=== PATIENT | male | born 1975 | race Caucasian/White ===

== ENCOUNTER 2019-10-12 15:53 | Emergency (ER) | payer OTHER, SELFPAY ==
[2019-10-12 16:00] VITALS: BP 129/69; PULSE 83; RESP 14; TEMP 36.8; O2SAT 97; BMI 18.2
--- NOTE | 2019-10-12 16:15 | PC.NURSE ---
walked into sharp object, approximately at 345pm today, denies loc, denies neck pain, with minimal pain at this time, site irrigated with ns, and tolerated well. tetanus 2014
--- NOTE | 2019-10-12 16:52 | ED.WOUNDLAC ---
HPI - Wound/Laceration <LETICIA Srivastava - Last Filed: 10/12/19 17:25> General Chief Complaint: Wound/Laceration Stated Complaint: LACERATION OF LEFT SIDE OF HEAD Time Seen by Provider: 10/12/19 16:15 Source: patient Mode of arrival: Ambulatory Limitations: no limitations History of Present Illness HPI narrative: The patient is a 43-year-old male pre nonsmoker with history of elevated bilirubin who presents with a chief complaint of a laceration to his head. He states that he hit it on a piece of metal while at work. No loss of consciousness, no lightheadedness dizziness nausea vomiting neck or back pain. States his last tetanus was in 2013. He presents with a chief complaint of laceration to his head. Related Data Home Medications Medication Instructions Recorded Confirmed Fish Oil 1,000 mg PO QDAY #0 01/28/13 VITAMIN D (Vitamin D3) 1,000 unit PO QDAY #0 01/28/13 magnesium oxide 250 mg PO #0 12/30/15 dextroamphetamine-amphetamine #0 08/22/16 [Adderall] Previous Rx's Medication Instructions Recorded ondansetron [Zofran ODT] 8 mg SUBLINGUAL Q6HP PRN #8 odt 12/30/15 Allergies Allergy/AdvReac Type Severity Reaction Status Date / Time malignant hypothermia Allergy Uncoded 10/12/19 16:00 Review of Systems <LETICIA Srivastava - Last Filed: 10/12/19 17:25> Review of Systems Narrative: GENERAL: Denies chills, fatigue, malaise, fever, sweats. HEENT: Denies sinus pain, ear pain, sore throat, difficulty swallowing, dizziness. RESPIRATORY: Denies dyspnea, cough, wheezing, hemoptysis, sputum. CARDIOVASCULAR: Denies chest pain, palpitations, orthopnea, edema, GASTROINTESTINAL: Denies nausea, vomiting, abdominal pain, diarrhea, constipation, melena. : Denies dysuria, frequency, incontinence, hematuria, urinary retention. MUSCULOSKELETAL: denies weakness, joint pain, or bony pain SKIN: See HPI NEUROLOGIC: Denies weakness, headache, numbness, change in speech, confusion, seizures, incoordination. PSYCHIATRIC: No concerning psychosocial issues. 12 point review of systems is negative except for those stated above Patient History <LETICIA Srivastava - Last Filed: 10/12/19 17:25> Social History Smoking Status: Unknown if ever smoked Smoking Status: Unknown if ever smoked alcohol intake frequency: holidays/special occasions only Substance Use Type: does not use Exam <ROMELIA Srivastava - Last Filed: 10/12/19 17:25> Narrative Exam Narrative: GENERAL: This is a well-nourished, well-developed patient, in no acute distress HEAD: Atraumatic. Normocephalic. No temporal or scalp tenderness. EYES: Pupils equal round and reactive. Extraocular motions intact. No scleral icterus. No injection or drainage. ENT: Nose without bleeding, purulent drainage or septal hematoma. Throat without erythema, tonsillar hypertrophy or exudate. Uvula midline. Airway patent. NECK: Trachea midline. No JVD or lymphadenopathy. Supple, nontender, no meningeal signs. CARDIOVASCULAR: Regular rate and rhythm RESPIRATORY: No cough. No increased respiratory effort. No accessory muscle use. GASTROINTESTINAL: Abdomen soft, non-tender, nondistended. No hepato-splenomegaly, or palpable masses. No guarding. EXTREMITIES: No clubbing, cyanosis, or edema. No joint tenderness, effusion, or edema noted. BACK: Nontender without deformity or crepitance. No flank tenderness. No pain to CT or L-spine palpation. NEURO: AOx3. Using all extremities equally. Stable gait. SKIN: 2 cm linear laceration on left side of scalp and hair Initial Vital Signs Initial Vital Signs: Vital Signs Temperature 98.2 F 10/12/19 16:00 Pulse Rate 83 10/12/19 16:00 Respiratory Rate 14 10/12/19 16:00 Blood Pressure 129/69 10/12/19 16:00 Pulse Oximetry 97 10/12/19 16:00 <Bubba Mejía MD - Last Filed: 10/12/19 18:31> Initial Vital Signs Initial Vital Signs: Vital Signs Temperature 98.2 F 10/12/19 16:00 Pulse Rate 83 10/12/19 16:00 Respiratory Rate 14 10/12/19 16:00 Blood Pressure 129/69 10/12/19 16:00 Pulse Oximetry 97 10/12/19 16:00 Procedures <ROMELIA Srivastava - Last Filed: 10/12/19 17:25> Laceration Repair Laceration 1: Site: scalp Side (If applicable): left Size (cm): 2 Description: linear Depth: simple, single layer Pre-repair: wound explored (Hibiclens and flushed by nursing), irrigated extensively and deep structures intact Skin layer closed with: ascencion (x 5) Course <ROMELIA Srivastava - Last Filed: 10/12/19 17:25> Orders Ordered: Discontinued Medications Diphtheria/Tetanus/Acell Pertussis (Adacel) 0.5 ml IM .ONCE ONE Stop: 10/12/19 16:25 Last Admin: 10/12/19 16:29 Dose: Not Given Documented by: KBROTEM Diphtheria/Tetanus/Acell Pertussis (Adacel) 0.5 ml IM .ONCE ONE Stop: 10/12/19 16:52 Last Admin: 10/12/19 16:53 Dose: 0.5 ml Documented by: MEISENHiral Vital Signs Vital signs: Vital Signs - 8 hr 10/12/19 16:00 Temperature 98.2 F Pulse Rate 83 Respiratory Rate 14 Blood Pressure 129/69 Pulse Oximetry 97 <Bubba Mejía MD - Last Filed: 10/12/19 18:31> Orders Ordered: Discontinued Medications Diphtheria/Tetanus/Acell Pertussis (Adacel) 0.5 ml IM .ONCE ONE Stop: 10/12/19 16:25 Last Admin: 10/12/19 16:29 Dose: Not Given Documented by: KBROTEM Diphtheria/Tetanus/Acell Pertussis (Adacel) 0.5 ml IM .ONCE ONE Stop: 10/12/19 16:52 Last Admin: 10/12/19 16:53 Dose: 0.5 ml Documented by: MEISENHiral Vital Signs Vital signs: Vital Signs - 8 hr 10/12/19 16:00 Temperature 98.2 F Pulse Rate 83 Respiratory Rate 14 Blood Pressure 129/69 Pulse Oximetry 97 MDM - Wound/Laceration <ROMELIA Srivastava - Last Filed: 10/12/19 17:25> MDM Narrative Medical decision making narrative: The patient is a 43-year-old male presents with a chief complaint of laceration. He denies any headache, nausea vomiting, lightheadedness or dizziness, loss of consciousness or signs of head injury. Wound was closed by ascencion as per procedural note. His tetanus is updated as his tetanus is over 5 years old. Encouraged follow-up with primary care provider. Discussed monitoring for any acute concerns such as signs of infection and coming back to the emergency department for any acute concerns. Discussed not submerging head into dirty water. Patient has no questions or concerns upon discharge and states understanding of return precautions as well as follow-up care. Discharge Plan Departure Patient Disposition: Home Clinical Impression: Laceration Discharge Date/Time: 10/12/19 17:06 Instructions: How to Care for a Laceration After Repair, DI for Laceration Repair -- Ascencion, DI for Minor Laceration Activity Restrictions/Additional Instructions: Thank you for trusting us with your care today We placed 5 ascencion in your scalp. Please follow up for staple removal in about 10-14 days Please monitor for signs and symptoms of infection such as redness swelling and pus Please follow-up if those occur Please come back to the emergency department for any acute concerns Prescriptions: No Action Fish Oil 1,000 mg PO QDAY Qty: 0 RF: 0 VITAMIN D (Vitamin D3) 1,000 unit PO QDAY Qty: 0 RF: 0 magnesium oxide 250 MG tablet 250 mg PO Qty: 0 RF: 0 ondansetron [Zofran ODT] 8 MG tablet,disintegrating 8 mg Sublingual Q6HP PRNQty: 8 RF: 0 dextroamphetamine-amphetamine [Adderall] 5 MG tablet Qty: 0 RF: 0 Referrals: Anshu Hui MD [Primary Care Provider] - Yessy Johnson MD [Physician] - Stand Alone Forms: Work Release Note <Bubba Mejía MD - Last Filed: 10/12/19 18:31> Cosign ED Attending Cosignature Attestation: I was immediately available in the department for consultation. This documentation has been reviewed and I agree with assessment and plan. Supervised by Bubba Mejía MD
[2019-10-12] MEDS: TET,DIPH,PERTUSS(ACELL),VAC/PF 0.5 ML SYRINGE IM (16:53)
== END 2019-10-12 17:06 | disposition home or self-care (01) ==
PROVIDERS: Emergency Provider Nurse Practitioner Family; PCP Family Medicine
DX: S01.01XA Laceration without foreign body of scalp, initial encounter (principal); W22.8XXA Striking against or struck by other objects, initial encounter; Z23 Encounter for immunization; Y99.0 Civilian activity done for income or pay
CPT/HCPCS: 12001; 90471; 99283; 90715

== ENCOUNTER → 2021-01-29 17:04 | Outpatient (CLI) | payer OTHER, SELFPAY ==
--- NOTE | 2021-01-29 17:10 | DI.RAD.S_ITS ---
PROCEDURE: XR RIBS RT MIN 3V W CXR 1V INDICATIONS: R mid anterior rib pain post injury, r/o fracture TECHNIQUE: 2 views of the right ribs were acquired, along with a single view chest. COMPARISON: None. FINDINGS: Surgical changes and devices: None. Bones and chest wall: A marker is placed upon the area of clinical concern. Within this region, no displaced rib fracture or other significant rib abnormality can be seen. No rib fractures are seen elsewhere. No suspicious bony lesions. Overlying soft tissues appear unremarkable. Lungs and pleura: No pleural effusions or pneumothorax. Lungs appear clear. Mediastinum: Mediastinal contours appear normal. Heart size is normal. IMPRESSION: No displaced rib fracture can be seen. No pneumothorax. Dictated by: Abdifatah Briscoe M.D. on 01/29/2021 at 16:54 Approved by: Abdifatah Briscoe M.D. on 01/29/2021 at 16:54
== END ==
PROVIDERS: Referring Provider Nurse Practitioner; Visit Provider Nurse Practitioner
DX: R07.81 Pleurodynia (principal)
CPT/HCPCS: 71101

== ENCOUNTER → 2021-04-15 09:14 | Outpatient (CLI) | payer OTHER, MEDICAID, SELFPAY ==
[2021-04-15 10:52] LABS: COVID19 -Nasal RAPID Negative (Negative)
== END ==
PROVIDERS: Visit Provider Physician Assistant
DX: Z20.822 Contact with and (suspected) exposure to COVID-19 (principal); J02.9 Acute pharyngitis, unspecified; R05.9 Cough, unspecified
CPT/HCPCS: 87635

== ENCOUNTER → 2021-08-08 08:47 | Outpatient (CLI) | payer OTHER, MEDICAID, SELFPAY | PROVIDERS: PCP Student in an Organized Health Care Education/Training Program; Referring Provider Student in an Organized Health Care Education/Training Program; Visit Provider Family Medicine | DX: I87.2 Venous insufficiency (chronic) (peripheral) (principal); I83.91 Asymptomatic varicose veins of right lower extremity; D68.1 Hereditary factor XI deficiency; Q87.40 Marfan syndrome, unspecified | CPT/HCPCS: 99203; 99213 ==

== ENCOUNTER → 2022-03-12 13:37 | Outpatient (CLI) | payer OTHER, SELFPAY | PROVIDERS: PCP Student in an Organized Health Care Education/Training Program; Visit Provider Student in an Organized Health Care Education/Training Program | DX: J02.9 Acute pharyngitis, unspecified (principal) | CPT/HCPCS: 87070 ==

== ENCOUNTER → 2023-02-17 17:10 | Outpatient (CLI) | payer OTHER, SELFPAY ==
--- NOTE | 2023-02-17 17:11 | DI.MRI.S_ITS ---
PROCEDURE: MR SHOULDER RT WO CON INDICATIONS: Pain in right shoulder TECHNIQUE: Noncontrast oblique coronal T2 fast spin echo with fat saturation, oblique sagittal T1 spin echo and T2 fast spin echo with fat saturation, axial T1 spin echo and T2 fast spin echo with fat saturation through the shoulder. COMPARISON: None. FINDINGS: Image quality: Excellent. Rotator cuff: Moderate supraspinatus and infraspinatus tendinosis is seen without significant tearing. The teres minor and subscapularis tendons appear to be intact. There is no significant rotator cuff muscle atrophy. Bones and bursae: No acute trabecular bone injury or fracture. Chronic traction cystic changes are seen at the posterosuperior humeral head and the lesser tuberosity near the rotator cuff tendon insertions. No large full-thickness cartilage defect is seen in the glenohumeral joint. Moderate degenerative changes are seen at the acromioclavicular joint with subchondral edema, subchondral cystic changes, and small marginal osteophytes. There is a small amount of fluid in the subacromial/subdeltoid bursa. No significant glenohumeral effusion is seen. Capsule and soft tissues: There is nondisplaced tearing of the posterosuperior to posteroinferior labrum. The proximal biceps long head tendon demonstrates mild tendinosis and flattening without a definite tear. There is mild partial effacement of the fat in the rotator interval. The anterior band of the inferior glenohumeral ligament and the middle glenohumeral ligament appear thickened. IMPRESSION: 1. Nondisplaced tearing of the posterosuperior to posteroinferior labrum. 2. Mild proximal biceps long head tendinosis. 3. Moderate supraspinatus and infraspinatus tendinosis. No significant rotator cuff tendon tear is seen. 4. Moderate acromioclavicular joint osteoarthrosis. 5. Small subacromial/subdeltoid bursal effusion or mild bursitis. 6. Partial effacement of the rotator interval fat and mild thickening of the inferior and middle glenohumeral ligaments are nonspecific, but can be seen in the setting of the clinical syndrome of adhesive capsulitis. Approved by: Servando Vo M.D. on 02/18/2023 at 9:22
== END ==
PROVIDERS: PCP Student in an Organized Health Care Education/Training Program; Referring Provider Family Medicine; Visit Provider Family Medicine
DX: S43.491A Other sprain of right shoulder joint, initial encounter (principal); M19.011 Primary osteoarthritis, right shoulder; M25.511 Pain in right shoulder; G89.29 Other chronic pain
CPT/HCPCS: 73221

== ENCOUNTER → 2023-05-13 14:26 | Outpatient (CLI) | payer OTHER, SELFPAY ==
--- NOTE | 2023-05-13 14:30 | DI.RAD.S_ITS ---
PROCEDURE: XR LUMBAR SPINE 2-3V INDICATIONS: LUMBAR DISC TECHNIQUE: 3 views of the lumbar spine were acquired. COMPARISON: None. FINDINGS: Bones: 5 [id number] vertebrae are present. There is normal bony alignment. No vertebral body compression fractures. No suspicious bony lesions. Mild L3-L4, L4-L5 and L5-S1 degenerative disc disease. Soft tissues: Overlying bowel gas pattern is normal. No suspicious soft tissue calcifications. IMPRESSION: Mild multilevel degenerative disc disease. Dictated by: Shahla Oswald MD, PhD on 05/13/2023 at 15:09 Approved by: Shahla Oswald MD, PhD on 05/13/2023 at 15:11
== END ==
PROVIDERS: PCP Student in an Organized Health Care Education/Training Program; Referring Provider Chiropractor; Visit Provider Chiropractor
DX: M51.26 Other intervertebral disc displacement, lumbar region (principal); M51.36 Other intervertebral disc degeneration, lumbar region; M51.37 Other intervertebral disc degeneration, lumbosacral region
CPT/HCPCS: 72100

== ENCOUNTER → 2023-06-16 16:15 | Outpatient (CLI) | payer OTHER, SELFPAY ==
--- NOTE | 2023-06-16 | DI.MRI.S_ITS ---
PROCEDURE: MR LUMBAR SPINE WO CON INDICATIONS: Sprain of ligaments of lumbar spine TECHNIQUE: Noncontrast sagittal T1 spin echo and T2 fast echo, sagittal STIR, and T2 fast spin echo through the lumbar spine. In cases with scoliosis, additional coronal T2 fast spin echo may be performed. COMPARISON: [facility], CR, XR LUMBAR SPINE 2-3V, 05/13/2023, 14:42. FINDINGS: Image quality: Excellent. Alignment and Curvature: There is normal bony alignment. Bone Marrow: Marrow is of normal overall signal. Mild moderate eactive endplate changes L2-3, including Schmorl's node along the superior endplate of L3. No acute vertebral body compression fractures. Spinal Cord: Conus medullaris terminates at the L1 level. Visualized cord demonstrates normal signal and size. Paraspinous Soft Tissues: No paravertebral masses. Discs: Multilevel disc desiccation most severe at L3-4, L4-5. T12-L1: No disc bulge, spinal stenosis or foraminal narrowing. L1-L2: No disc bulge, spinal stenosis or foraminal narrowing. L2-L3: Minimal disc bulge without spinal stenosis. Minimal left foraminal narrowing. Facet and ligamentum flavum hypertrophy are present. L3-L4: Minimal disc bulge without spinal stenosis. Minimal left foraminal narrowing with facet and ligamentum flavum hypertrophy. L4-L5: Minimal disc bulge without spinal stenosis or foraminal narrowing. Minimal facet and ligamentum flavum hypertrophy. L5-S1: No disc bulge, spinal stenosis or foraminal narrowing. IMPRESSION: Early degenerative changes demonstrating minimal areas of foraminal narrowing secondary to early facet arthropathy. Dictated by: Valentine Coe M.D. on 06/17/2023 at 9:06 Approved by: Valentine Coe M.D. on 06/17/2023 at 9:08
== END ==
PROVIDERS: PCP Family Medicine; Referring Provider Family Medicine; Visit Provider Family Medicine
DX: S32.049A Unspecified fracture of fourth lumbar vertebra, initial encounter for closed fracture (principal); S39.012A Strain of muscle, fascia and tendon of lower back, initial encounter; X58.XXXA Exposure to other specified factors, initial encounter; S33.5XXA Sprain of ligaments of lumbar spine, initial encounter
CPT/HCPCS: 72148

== ENCOUNTER → 2024-01-19 16:11 | Outpatient (ROUT) | payer BC, SELFPAY ==
[2024-01-19 17:05] LABS: Influenza A - CEPHEID Flu A NEGATIVE (NEGATIVE); Influenza B - CEPHEID Flu B NEGATIVE (NEGATIVE); Respiratory Syncytial Virus Negative (Negative)
[2024-01-19 17:31] LABS: COVID-19 CEPHEID 4-PLEX PCR Negative (Negative)
== END ==
PROVIDERS: PCP Family Medicine; Visit Provider Family Medicine
DX: R52 Pain, unspecified (principal); R53.83 Other fatigue; R42 Dizziness and giddiness
CPT/HCPCS: 0241U

== ENCOUNTER → 2024-04-29 16:42 | Outpatient (CLI) | payer OTHER, SELFPAY ==
--- NOTE | 2024-04-29 16:47 | DI.RAD.S_ITS ---
PROCEDURE: XR HIP W PEL IF DONE LT 2V INDICATIONS: Hip pain L and I TECHNIQUE: AP pelvis with lateral view(s) of the left hip(s). COMPARISON: None. FINDINGS: Bones: No fractures or dislocations. Pelvic ring appears intact. No suspicious bony lesions. Soft tissues: The visualized bowel gas pattern is normal. No suspicious soft tissue calcifications. IMPRESSION: No significant osseous abnormality is identified. MRI could be considered for further evaluation Dictated by: Armond Severino M.D. on 05/01/2024 at 9:55 Approved by: Armond Severino M.D. on 05/01/2024 at 9:56
== END ==
LOC: RAD 16:47
PROVIDERS: PCP Family Medicine; Referring Provider Nurse Practitioner Family; Visit Provider Nurse Practitioner Family
DX: S76.019A Strain of muscle, fascia and tendon of unspecified hip, initial encounter (principal); X58.XXXA Exposure to other specified factors, initial encounter
CPT/HCPCS: 73502

== ENCOUNTER → 2024-07-26 15:52 | Outpatient (CLI) | payer OTHER, SELFPAY ==
--- NOTE | 2024-07-26 15:53 | DI.RAD.S_ITS ---
PROCEDURE: FL ARTHROGRAM HIP LT INDICATIONS: POSS LABRAL TEAR TECHNIQUE: The indications, alternatives, benefits, risks, and complications of the procedure were explained to the patient. Written informed consent was obtained and placed in the chart. The hip was examined fluoroscopically with the legs fixed in slight internal rotation, and a site for needle placement chosen for entry into the hip joint from an anterior approach. Care was taken to locate the common femoral artery and vein beforehand. The skin was prepped and draped in a sterile fashion, and 1% Lidocaine infiltrated from skin down to joint capsule. A spinal needle was inserted into the joint, and a small amount of iodinated contrast media injected to confirm intra-articular placement of the needle tip. This was followed by approximately 10 mL dilute solution of a gadolinium containing MR contrast agent. The needle was removed and a dressing was applied. The patient was given postprocedural instructions and sent to the MR suite for imaging. COMPARISON: None. FINDINGS: A single fluoroscopic spot image demonstrates intra-articular location of injected iodinated contrast. IMPRESSION: Successful fluoroscopically guided administration of dilute Gadolinium solution into the hip joint for MR arthrogram. Dictated by: Alhaji Pandya M.D. on 07/26/2024 at 16:57 Approved by: Alhaji Pandya M.D. on 07/26/2024 at 16:57
--- NOTE | 2024-07-26 15:54 | DI.MRI.S_ITS ---
PROCEDURE: MR HIP LT W CON INDICATIONS: POSS LABRAL TEAR TECHNIQUE: After the administration of 10 mL of dilute intra-articular Gadolinium contrast, coronal STIR of the bony pelvis; coronal and oblique axial T1 spin echo with fat saturation, axial T2 fast spin echo with fat saturation, sagittal T1 spin echo with and without fat saturation of the involved hip. COMPARISON: [facility], CR, XR HIP W PEL IF DONE LT 2V, 04/29/2024, 17:07. [facility], RF, FL ARTHROGRAM HIP LT, 07/26/2024, 16:19. FINDINGS: Image quality: Excellent. Bones and joints: Bone marrow of the pelvic ring and proximal femurs show normal signal disc desiccation and facet hypertrophy are seen in the included spine. Tendons and ligaments: Mild distal gluteus medius and minimus tendinosis. The proximal iliotibial band appears intact. The iliopsoas tendon appears intact, without adjacent bursal fluid collections. The origin of the hamstring tendon is intact at the ischial tuberosity. The tendons for the direct and indirect heads of the rectus femoris muscle appear intact. Labrum and cartilage: Nondisplaced tearing of the anterior to anterior superior labrum. No focal cartilage defect is seen. Asphericity of the femoral head is seen with an osseous protuberance at the anterior superior head/neck junction, which can be seen in the setting of cam-type femoroacetabular impingement. No intra-articular loose body. Soft tissues: Visualized muscles demonstrate normal bulk and internal signal. Quadratus femoris muscle demonstrates no internal edema to suggest ischiofemoral impingement. The proximal sciatic neurovascular bundle appears normal adjacent to the hamstring tendons. Pelvic soft tissues demonstrate no acute abnormality. IMPRESSION: 1. Nondisplaced tearing of the anterior to anterior superior labrum. 2. Asphericity of the femoral head is seen with an osseous protuberance at the anterior superior head/neck junction, which can be seen in the setting of cam-type femoroacetabular impingement. 3. Mild distal left gluteus medius and minimus tendinosis. 4. Degenerative changes are seen in the included spine. Approved by: Servando Vo M.D. on 07/27/2024 at 13:20
[2024-07-26] MEDS: LIDOCAINE 1% 20 ML INJ (16:42)
[2024-07-26] MEDS: SODIUM CHLORIDE 0.9 % 20 ML VIAL IV (16:42)
== END ==
PROVIDERS: PCP Family Medicine; Referring Provider Family Medicine; Visit Provider Family Medicine
DX: S73.192A Other sprain of left hip, initial encounter (principal); S79.01 Salter-Harris Type I physeal fracture of upper end of femur
CPT/HCPCS: 27093; 73525; 73722; A9579; Q9967

== ENCOUNTER → 2024-10-15 15:58 | Outpatient (CLI) | payer OTHER, SELFPAY ==
--- NOTE | 2024-10-15 15:59 | DI.RAD.S_ITS ---
PROCEDURE: FL JOINT INJECTION LARGE LT INDICATIONS: PAIN IN LEFT HIP COMPARISON: None. TECHNIQUE: The indications, alternatives, benefits, risks, and complications of the procedure were explained to the patient. Written informed consent was obtained and placed in the chart. The patient was placed in an appropriate position on the fluoroscopy table, and a site was chosen for percutaneous access under fluoroscopic guidance. The site was prepped and draped in a sterile fashion. Local anesthetic was administered using a 1% lidocaine solution. A hypodermic or spinal needle was then used to access the symptomatic joint. Intra-articular location of the needle tip was confirmed by injecting a small amount of contrast, followed by steroid administration. The needle was then withdrawn, and a bandage applied to the puncture site. FINDINGS: Joint injected: Left hip Medications injected: For mL of 40 mg/mL Kenalog and 0.5% Ropivacaine mixture. Patient's pain before injection: 5 out of 10. Patient's pain after injection: 4 out of 10. Complications: None. IMPRESSION: Successful fluoroscopically guided administration of steroid and anaesthetic solution into the left hip joint. Dictated by: Valentine Coe M.D. on 10/15/2024 at 16:45 Approved by: Valentine Coe M.D. on 10/15/2024 at 16:46
[2024-10-15] MEDS: ROPIVACAINE 0.5% PF 5 MG/ML 20ML VIAL 20 ML INJ (16:40)
[2024-10-15] MEDS: LIDOCAINE 1% 20 ML INJ (16:40)
[2024-10-15] MEDS: TRIAMCINOLONE 40 MG/ML VIAL INTRA-ARTI (16:41)
== END ==
PROVIDERS: PCP Family Medicine; Referring Provider Orthopaedic Surgery Sports Medicine; Visit Provider Orthopaedic Surgery Sports Medicine
DX: M25.552 Pain in left hip (principal)
CPT/HCPCS: 20610; 77002; Q9967

== ENCOUNTER 2025-05-15 14:22 | Emergency (ER) | payer OTHER, SELFPAY ==
[2025-05-15 14:27] VITALS: BP 115/66; PULSE 61; RESP 18; TEMP 36.8; O2SAT 100; BMI 19.3
--- NOTE | 2025-05-15 15:19 | ED.SKABFB ---
HPI - Skin/Abscess/Foreign Bdy General Chief complaint: Skin/Abscess/Foreign Body Stated complaint: Contact dermatitis used benzoilperoxide-not workin Time Seen by Provider: 05/15/25 15:16 Source: patient Mode of arrival: Ambulatory Limitations: no limitations History of Present Illness HPI narrative: 49-year-old gentleman with presumably seborrheic dermatitis including his ears recently saw his contracts specialist who prescribed 10% benzoyl peroxide solution along with the ketoconazole. He has been applying both of these now for 5 days and symptoms are significantly better however he now has significant erythema and swelling to ears and the immediate periauricular skin that is also been in contact with the benzoyl peroxide. The remainder of his scalp that has had the fluconazole on it does not seem to be affected. He describes pain from the swelling in the warmth but no fevers. Related Data Home Medications ?Medication ?Instructions ?Recorded ?Confirmed Fish Oil 1,000 mg PO QDAY ##0 01/28/13 04/29/24 VITAMIN D (Vitamin D3) 1,000 unit PO QDAY ##0 01/28/13 04/29/24 magnesium oxide 250 mg PO ##0 12/30/15 04/29/24 Previous Rx's ?Medication ?Instructions ?Recorded fluticasone propionate 50 1 spray intranasal Q12H #16 grams 07/19/23 mcg/actuation nasal spray,suspension (Flonase Allergy Relief) prednisone 20 mg tablet 40 mg (2 x 20 mg) PO DAILY #8 tabs 05/15/25 Allergies Allergy/AdvReac Type Severity Reaction Status Date / Time malignant hypothermia Allergy Mild Uncoded 05/15/25 14:32 Review of Systems Review of Systems Narrative: Pertinent positive and negative findings as per HPI Patient History Social History Smoking Status: Never smoker Smoking Status: Never smoker alcohol intake frequency: holidays/special occasions only Exam Initial Vital Signs Initial Vital Signs: Vital Signs Temperature 98.3 F 05/15/25 14:27 Pulse Rate 61 05/15/25 14:27 Respiratory Rate 18 05/15/25 14:27 Blood Pressure 115/66 05/15/25 14:27 Pulse Oximetry 100 05/15/25 14:27 Oxygen Delivery Method Room Air 05/15/25 14:27 General: Alert appropriate in no acute distress HEENT: Both ears are red warm, swollen to the touch without any skin breakdown or discharge. Similar erythema to skin periauricular with no significant cervical adenopathy. Respiratory: Able to speak in full sentences, no obvious respiratory distress Skin: No obvious rashes, warm and dry Neurologic: Grossly intact no obvious asymmetries or abnormalities Psych: appropriate insight and affect, cooperative Course Vital Signs Vital signs: Vital Signs - 8 hr 05/15/25 14:27 Temperature 98.3 F Pulse Rate 61 Respiratory Rate 18 Blood Pressure 115/66 Pulse Oximetry 100 Oxygen Delivery Method Room Air MDM - Skin/Abscess/Foreign Bdy MDM Narrative Medical decision making narrative: 49-year-old gentleman with bilateral skin irritation both ears and skin around the ears. Recent application of 10% benzoyl peroxide for presumed seborrheic dermatitis. He has discontinued the benzoyl peroxide, last application was yesterday morning. Comes in today for further evaluation secondary to pain. Recommended steroid brief course, discontinuation of the benzoyl peroxide and follow up with his contracts specialist as symptoms seemed to be worsening. There was no indication for lab work or additional imaging and he is safely discharged Discharge Plan Departure Patient Disposition: Home Clinical Impression: Contact dermatitis Qualifiers: Contact dermatitis type: irritant Contact dermatitis trigger: drugs in contact with skin Qualified Code(s): L24.4 - Irritant contact dermatitis due to drugs in contact with skin Instructions: DI for Contact Dermatitis Activity Restrictions/Additional Instructions: Thank you for coming in today You do believe that this is an acute reaction to the benzoyl peroxide. Fortunately, it does look like it did the jaw but needed to do. You do need to discontinue this. You likely will find that you have similar reactions if you use it again. I do not think that this is related to the fluconazole and you can continue with the I have given you 60 mg of oral prednisone in the emergency department and a prescription for 40 mg of prednisone to take daily over the next 4 days this should help with the inflammation and irritation. I would recommend that you follow up with your contracts specialist if symptoms are not significantly improving. Prescriptions: New prednisone 20 mg tablet 40 mg PO DAILY Qty: 8 0RF No Action fluticasone propionate [Flonase Allergy Relief] 50 mcg/actuation spray,suspension 1 spray intranasal Q12H Qty: 16 0RF Rx Instructions: administer into each nostril Fish Oil 1,000 mg PO QDAY Qty: 0 VITAMIN D (Vitamin D3) 1,000 unit PO QDAY Qty: 0 magnesium oxide 250 MG tablet 250 mg PO Qty: 0 Referrals: Daniel Cobos MD [Primary Care Provider, Family Practice] Stand Alone Forms: Patient Portal/API
[2025-05-15 15:41] VITALS: BP 116/59; PULSE 65; RESP 18; TEMP 37.2; O2SAT 97
== END 2025-05-15 15:47 | disposition home or self-care (01) ==
PROVIDERS: Emergency Provider Emergency Medicine; PCP Family Medicine
DX: L23.3 Allergic contact dermatitis due to drugs in contact with skin (principal)
CPT/HCPCS: 99283